=== PATIENT | female | born 1970 | race American Indian/Alaskan Native ===

== ENCOUNTER 2016-08-12 15:31 | Emergency (ER) | payer MEDICAID ==
--- NOTE | 2016-08-12 16:01 | EDM.PDOC ---
[id number]: BP ISSUES Time Seen by Provider: 08/12/16 16:06 Source: Reports: Patient, Family History Limitations: Reports: No limitations - History of Present Illness INITIAL COMMENTS - FREE TEXT/NARRATIVE: pt was sent from the clinic because her bp was quite high at the clinic. Timing/Duration: Reports: Day(s):, Getting worse, Other ( pt has not had any chest pain. ) Location, General: Reports: other ( bp is elevated. ) Associated Symptoms: Reports: other ( bp is elevated ) - Related Data Allergies/ADRs: Allergies Allergy/AdvReac Type Severity Reaction Status Date / Time No Known Allergies Allergy Verified 12/29/15 12:25 Home Meds: Home Meds Aspirin [Low Dose Aspirin EC] 81 mg PO DAILY 01/02/15 [History] Carvedilol 3.125 mg PO DAILY 01/02/15 [History] Carvedilol [Coreg] 12.5 mg PO DAILY 01/02/15 [History] Furosemide [Lasix] 40 mg PO DAILY PRN 01/02/15 [History] Losartan Potassium 25 mg PO DAILY 02/25/15 [History] Acetaminophen [Tylenol Extra Strength] 1,500 mg PO Q3H PRN 12/29/15 [History] Past Medical History Cardiovascular History: Reports: Arrhythmia, Hypertension Other Cardiovascular History: Leaking valves 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 OB/BYN History: csections x3 Musculoskeletal History: Reports: Fracture Other Musculoskeletal History: fx nose Dermatologic History: Reports: Other (see below) Other Dermatologic History: Drainage of cyst r side.06/18/2015 - Infectious Disease History Infectious Disease History: Reports: Chicken pox - Past Surgical History GI Surgical History: Reports: Cholecystectomy Female Surgical History: Reports: section Social & Family History - Tobacco Use Smoking Status *Q: Never Smoker Second Hand Smoke Exposure: No - Caffeine Use Caffeine Use: Reports: Coffee, Soda - Alcohol Use Days Per Week of Alcohol Use: 0 - Recreational Drug Use Recreational Drug Use: No ED ROS GENERAL - Review of Systems Review Of Systems: See Below Constitutional: Reports: no symptoms HEENT: Reports: No symptoms Respiratory: Reports: No Symptoms Cardiovascular: Reports: No symptoms, Other (bp is very elevated, She has been off all of hr meds. ) Endocrine: Reports: no symptoms GI/Abdominal: Reports: No symptoms : Reports: no symptoms Musculoskeletal: Reports: no symptoms Skin: Reports: no symptoms, other (pt has a draining abcess on the rt side of the abdoman that Dr Soto is following. ) Neurological: Reports: No Symptoms ED EXAM, GENERAL - Physical Exam Exam: See Below Free Text/Narrative:: Pt was at the clinic and she was found to have an elevated bp. Exam Limited By: No limitations General Appearance: alert, anxious Ears: normal TMs Nose: normal inspection Throat/Mouth: Normal inspection Head: atraumatic Neck: normal inspection Respiratory/Chest: no respiratory distress Cardiovascular: regular rate, rhythm GI/Abdominal: soft, non tender Rectal (Female) Exam: Deferred Back Exam: normal inspection Extremities: normal inspection Neurological: alert, oriented, normal cognition Course - Vital Signs Last Recorded V/S: Last Vital Signs Temp 36.8 C 08/12/16 15:55 Pulse 86 08/12/16 18:24 Resp 16 08/12/16 18:24 BP 171/101 H 08/12/16 18:24 Pulse Ox 99 08/12/16 18:24 - Orders/Labs/Meds Orders: Active Orders 24 hr Category Date Time Status EKG Documentation Completion [RC] ASDIRECTED Care 08/12/16 16:14 Active Chest 1V Frontal [CR] Stat Exams 08/12/16 16:14 Taken Saline Lock Insert [OM.PC] Routine Oth 08/12/16 16:16 Ordered EKG 12 Lead [EK] Routine Ther 08/12/16 16:14 Ordered Labs: Laboratory Tests 08/12/16 08/12/16 08/12/16 Range/Units 16:23 16:23 17:33 WBC 7.9 (4.5-11.0) K/uL RBC 5.39 (3.30-5.50) M/uL Hgb 13.7 (12.0-15.0) g/dL Hct 41.6 (36.0-48.0) % MCV 77 L (80-98) fL MCH 25 L (27-31) pg MCHC 33 (32-36) % Plt Count 292 (150-400) K/uL Neut % (Auto) 67 H (36-66) % Lymph % (Auto) 23 L (24-44) % [place] % (Auto) 7 H (2-6) % Eos % (Auto) 2 (2-4) % Baso % (Auto) 1 (0-1) % Sodium 143 (140-148) mmol/L Potassium 3.9 (3.6-5.2) mmol/L Chloride 104 (100-108) mmol/L Carbon Dioxide 29 (21-32) mmol/L Anion Gap 9.9 (5.0-14.0) mmol/L BUN 10 (7-18) mg/dL Creatinine 0.8 (0.6-1.0) mg/dL Est Cr Clr Drug Dosing 71.91 mL/min Estimated GFR (MDRD) > 60 (>60) Glucose 98 (74-106) mg/dL Calcium 8.4 L (8.5-10.1) mg/dL Total Bilirubin 0.2 (0.2-1.0) mg/dL AST 20 (15-37) U/L ALT 29 (12-78) U/L Alkaline Phosphatase 90 (46-116) U/L Lvj-F-Pujlabovrvu Pept 205 H (5-125) pg/mL Total Protein 8.0 (6.4-8.2) g/dL Albumin 3.1 L (3.4-5.0) g/dL Globulin 4.9 H (2.3-3.5) g/dL Albumin/Globulin Ratio 0.6 L (1.2-2.2) Urine Color Yellow Urine Appearance Clear Urine pH 8.0 (4.5-8.0) Ur Specific [place] 1.015 (1.008-1.030) Urine Protein Negative (NEGATIVE) mg/dL Urine Glucose (UA) Normal (NEGATIVE) mg/dL Urine Ketones Negative (NEGATIVE) mg/dL Urine Occult Blood Negative (NEGATIVE) Urine Nitrite Negative (NEGATIVE) Urine Bilirubin Negative (NEGATIVE) Urine Urobilinogen Normal (NORMAL) mg/dL Ur Leukocyte Esterase Negative (NEGATIVE) Urine RBC 0-5 (0-5) Urine WBC 0-5 (0-5) Ur Epithelial Cells Not seen Amorphous Sediment Not seen Urine Bacteria Not seen Urine Mucus Not seen Meds: Medications Discontinued Medications Generic Name Dose Route Start Last Admin Trade Name Freq PRN Reason Stop Dose Admin Carvedilol 6.25 mg 08/12/16 17:46 08/12/16 18:21 Coreg PO 08/12/16 17:47 6.25 mg ONETIME ONE Administration Labetalol HCl 20 mg 08/12/16 16:30 08/12/16 16:41 Normodyne IVPUSH 08/12/16 16:31 20 mg NOW ONE Administration Losartan Potassium 25 mg 08/12/16 16:56 08/12/16 17:04 Cozaar PO 08/12/16 16:57 25 mg ONETIME ONE Administration Sodium Chloride 10 ml 08/12/16 16:16 08/12/16 16:31 Saline Flush FLUSH 10 ml ASDIRECTED PRN Administration Keep Vein Open - Re-Assessments/Exams Free Text/Narrative Re-Assessment/Exam: 08/12/16 17:35 chest xray did not show any evidence of fluid, Her bnp is not elevated. Her ekg looks good. lab work otherwise looks normal. Departure - Departure Time of Disposition: 18:55 Disposition: Home, Self-Care 01 Condition: fair Clinical Impression: Hypertension, History of CHF (congestive heart failure) Instructions: Hypertension, Rilv-[id number], Heart Failure, [id number] Referrals: Avery Fu MD [Primary Care Provider] - Forms: ED Department Discharge Care Plan Goals: , continue aspirin. coreg 6.25 bid losartin 25 mg daily, see Dr cheney tomorrow. - My Orders Last 24 Hours: My Active Orders 08/12/16 16:14 EKG Documentation Completion [RC] ASDIRECTED Chest 1V Frontal [CR] Stat EKG 12 Lead [EK] Routine 08/12/16 16:16 Saline Lock Insert [OM.PC] Routine - Assessment/Plan Last 24 Hours: My Active Orders 08/12/16 16:14 EKG Documentation Completion [RC] ASDIRECTED Chest 1V Frontal [CR] Stat EKG 12 Lead [EK] Routine 08/12/16 16:16 Saline Lock Insert [OM.PC] Routine
[2016-08-12] MEDS ORDERED: Sodium Chloride 0.9% 10 ML Syringe FLUSH PRN (16:16)
[2016-08-12] MEDS ORDERED: Labetalol 20 MG/4 ML Syringe IVPUSH ONE (16:30)
[2016-08-12] MEDS ORDERED: Losartan 50 MG Tab PO ONE (16:56)
[2016-08-12] MEDS ORDERED: Carvedilol 6.25 MG Tab PO ONE (17:46)
[2016-08-12 18:24] VITALS: BP 171/101
--- NOTE | 2016-08-13 10:00 | CR ---
Chest 1V Frontal HISTORY: Hypertension. Comparison: 06/01/2015. FINDINGS: Cardiac size and pulmonary vessels are normal. The lungs are clear. Stable elevation right hemidiaphragm. IMPRESSION: Negative AP chest.
== END 2016-08-12 18:51 | disposition home or self-care (01) ==
LOC: JP.ED 15:31
DX: I10 Essential (primary) hypertension (principal); I50.9 Heart failure, unspecified; Z79.82 Long term (current) use of aspirin; Z79.899 Other long term (current) drug therapy; Z90.49 Acquired absence of other specified parts of digestive tract; Z98.890 Other specified postprocedural states
CPT/HCPCS: 36415; 71010; 80053; 81001; 83880; 85025; 93005; 96374; 99284; A9270; J7050

== ENCOUNTER 2016-09-03 06:29 | Day surgery (SDC) | payer MEDICAID ==
[~2016-09-03 06:29] MED LIST: Sodium Chloride 0.9% 1,000 ML IV SCH; ceFAZolin 2 GM in Premix Bag 1 BAG IV ONE; metroNIDAZOLE/Normal Saline 500 MG in Premix Bag 1 BAG IV ONE
[2016-09-03] MEDS ORDERED: Propofol 200 MG/20 ML SDV ONE (06:38)
[2016-09-03] MEDS ORDERED: fentaNYL 100 MCG/2 ML SDV ONE (06:38)
[2016-09-03] MEDS ORDERED: Midazolam 1 MG/ML 2 ML SDV ONE (06:38)
[2016-09-03] MEDS ORDERED: Lidocaine 1% with EPINEPHrine 1:100,000 50 ML MDV ONE (06:46)
[2016-09-03] MEDS ORDERED: Bupivacaine 0.5% 50 ML MDV ONE (06:46)
[2016-09-03] MEDS ORDERED: ceFAZolin 2 GM in Premix Bag 1 BAG IV ONE (07:35)
[2016-09-03] MEDS ORDERED: metroNIDAZOLE/Normal Saline 500 MG in Premix Bag 1 BAG IV ONE (07:35)
[2016-09-03] MEDS ORDERED: ceFAZolin 2 GM in Sodium Chloride 0.9% 100 ML IV ONE (07:35)
[2016-09-03] MEDS ORDERED: Bacitracin Oint 1 GM U/D Packet ONE (08:08)
[2016-09-03] MEDS ORDERED: Ketorolac 60 MG/2 ML SDV ONE (08:14)
[2016-09-03] MEDS ORDERED: Morphine 4 MG/ML Syringe IVPUSH PRN (08:44)
[2016-09-03] MEDS ORDERED: Acetaminophen/HYDROcodone 325-10 MG Tab PO PRN (08:44)
[2016-09-03 09:31] VITALS: BP 111/82
--- NOTE | 2016-09-06 07:46 | OR ---
DATE OF PROCEDURE: 09/03/2016 PROCEDURE PERFORMED: Excision of chronic sinus tract, left flank, depth of 5.1 cm. COMPLICATIONS: None. ASSIGNMENT AGENT: None. ANESTHESIA: MAC. INDICATIONS: A pleasant 46-year-old female, who has had a chronic sinus tract after having a drain placed. Risks, benefits, alternatives, and limitations were including, but not limited to infection, bleeding, and injury to abdominal structures were explained to the patient again and they wished to proceed. PROCEDURE IN DETAIL: The patient was placed in right lateral decubitus position. The skin was prepped and draped in standard fashion. A probe was used to measure the depth which was 5.5 cm. The skin and its associated tract were anesthetized with lidocaine, mixed with Marcaine. An elliptical incision was made with a #15 blade. Electrocautery was used to dissect down the tract. The incision was then large approximately 5 mm on each side to enhance visualization of the tract. The tract was then followed down to the area of the fascia. This did not penetrate the fascia in order went inside the intraabdominal component. After this, the tract was removed and sent to Pathology. The wound was thoroughly irrigated. This wound was closed in successive layers of 3-0 Vicryl to the skin. The skin was then closed with 3-0 Prolene interrupted/running sutures. An Iodoform gauze was then placed within this. The patient tolerated the procedure well. Ar Soto MD /[id number]
== END 2016-09-03 09:46 | disposition home or self-care (01) ==
LOC: JP.SDS 06:29
PROVIDERS: ATTEND Surgery
DX: K66.8 Other specified disorders of peritoneum (principal)
CPT/HCPCS: 22902; 87070; 87075; 87205; J0690; J1885; J2250; J2704; J3010; J7040; 88304

== ENCOUNTER 2019-11-04 02:00 | Emergency (ER) | payer MEDICAID ==
[2019-11-04] MEDS ORDERED: Albuterol 0.083% 2.5 MG/3 ML Neb Soln NEB ONE (02:27)
--- NOTE | 2019-11-04 02:33 | EDM.PDOC ---
ED HPI GENERAL MEDICAL PROBLEM - General Chief Complaint: Respiratory Problem Stated Complaint: SOB Time Seen by Provider: 11/04/19 02:20 Source of Information: Reports: Patient, Old Records, RN History Limitations: Reports: No Limitations - History of Present Illness INITIAL COMMENTS - FREE TEXT/NARRATIVE: 49 yo female with a pHx of CHF/valvular heart dz presents with SOB worse with exertion tonight. Denies orthopnea. Does have a slight increase in LE edema. No cough or fever. Has diuretics she can take as needed to prevent fluid overload, but didn't take any. Denies a hx of asthma and has no sneezing or nasal congestion. No chest pain. Onset: Gradual Onset Date: 11/03/19 Duration: Hour(s):, Getting Worse Location: Reports: Chest Quality: Reports: Other (no pain) Severity: Mild Improves with: Reports: Rest Worsens with: Reports: Movement Context: Reports: Other (See HPI) Associated Symptoms: Reports: Shortness of Breath. 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 (see below) (none) - Related Data Allergies Allergy/AdvReac Type Severity Reaction Status Date / Time Ewnaepn-Nbr-Vdb Reductase Allergy Cough Verified 11/04/19 02:07 Inhibitor Home Meds: Home Meds Aspirin [Low Dose Aspirin EC] 81 mg PO DAILY 01/02/15 [History] Furosemide [Lasix] 20 mg PO BID PRN 01/02/15 [History] carvediloL [Coreg] 25 mg PO BID 01/02/15 [History] Losartan Potassium 25 mg PO DAILY 02/25/15 [History] Acetaminophen [Tylenol Extra Strength] 1,500 mg PO Q3H PRN 12/29/15 [History] Spironolactone [Aldactone] 1 tab PO DAILY 11/04/19 [History] Past Medical History Cardiovascular History: Reports: Arrhythmia, Heart Failure, Hypertension Other Cardiovascular History: Leaking valves Gastrointestinal History: Reports: None Genitourinary History: Reports: Renal Calculus 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 Musculoskeletal History: Reports: Fracture Other Musculoskeletal History: fx nose Endocrine/Metabolic History: Reports: Obesity/BMI 30+ Dermatologic History: Reports: Other (See Below) Other Dermatologic History: Drainage of cyst r side.06/18/2015 - Infectious Disease History Infectious Disease History: Reports: Chicken Pox - Past Surgical History Cardiovascular Surgical History: Reports: None GI Surgical History: Reports: Cholecystectomy Female Surgical History: Reports: Section Musculoskeletal Surgical History: Reports: None Social & Family History - Tobacco Use Smoking Status *Q: Never Smoker - Caffeine Use Caffeine Use: Reports: Soda - Alcohol Use Days Per Week of Alcohol Use: 2 Number of Drinks Per Day: 4 Total Drinks Per Week: 8 - Recreational Drug Use Recreational Drug Use: No ED ROS GENERAL - Review of Systems Review Of Systems: See Below Constitutional: Reports: No Symptoms HEENT: Reports: No Symptoms Respiratory: Reports: Shortness of Breath, Wheezing. Denies: Pleuritic Chest Pain, Cough, Sputum, Hemoptysis Cardiovascular: Reports: No Symptoms Endocrine: Reports: No Symptoms GI/Abdominal: Reports: No Symptoms : Reports: No Symptoms Musculoskeletal: Reports: No Symptoms Skin: Reports: No Symptoms Neurological: Reports: No Symptoms Psychiatric: Reports: No Symptoms ED EXAM, GENERAL - Physical Exam Exam: See Below Exam Limited By: No Limitations General Appearance: Alert, WD/WN, No Apparent Distress, Obese Eye Exam: Bilateral Eye: Normal Inspection Ears: Normal External Exam, Normal Canal, Hearing Grossly Normal Ear Exam: Bilateral Ear: Auricle Normal, Canal Normal Nose: Normal Inspection, No Blood Throat/Mouth: Normal Inspection, Normal Lips, Normal Oropharynx, Normal Voice, No Airway Compromise Head: Atraumatic, Normocephalic Neck: Normal Inspection Respiratory/Chest: No Respiratory Distress, No Accessory Muscle Use, Wheezing. No: Lungs Clear, Normal Breath Sounds, Respiratory Distress, Decreased Breath Sounds, Crackles, Rales, Rhonchi, Accessory Muscle Use, Retractions Cardiovascular: Regular Rate, Rhythm, Tachycardia, Other (trace LE edema bilaterally.). No: No Edema Extremities: Normal Inspection, Normal Range of Motion, Non-Tender, Pedal Edema (trace). No: No Pedal Edema, Jens's Sign, Increased Warmth, Redness Neurological: Alert, Oriented, CN II-XII Intact, Normal Cognition, No Motor/Sensory Deficits Psychiatric: Normal Affect, Normal Mood Skin Exam: Warm, Dry, Intact, Normal Color, No Rash Course - Vital Signs Last Recorded V/S: Last Vital Signs Temp 36.4 C 11/04/19 02:10 Pulse 86 11/04/19 02:10 Resp 26 H 11/04/19 02:10 BP 156/94 H 11/04/19 02:10 Pulse Ox 97 11/04/19 02:10 - Orders/Labs/Meds Orders: Active Orders 24 hr Category Date Time Status RT Aerosol Therapy [RC] ASDIRECTED Care 11/04/19 02:28 Active Meds: Medications Discontinued Medications Generic Name Dose Route Start Last Admin Trade Name Freq PRN Reason Stop Dose Admin Albuterol 2.5 mg 11/04/19 02:27 11/04/19 02:32 Proventil Neb Soln NEB 11/04/19 02:28 2.5 mg ONETIME ONE Administration - Re-Assessments/Exams Free Text/Narrative Re-Assessment/Exam: 11/04/19 02:50 Breathing a lot better after albuterol neb Departure - Departure Time of Disposition: 02:55 Disposition: Home, Self-Care 01 Condition: Fair Clinical Impression: Bronchospasm - Discharge Information *PRESCRIPTION DRUG MONITORING PROGRAM REVIEWED*: Not Applicable *COPY OF PRESCRIPTION DRUG MONITORING REPORT IN PATIENT VINNY: Not Applicable Instructions: Bronchospasm, Adult, [id number] Referrals: Avery Fu MD [Primary Care Provider] - Forms: ED Department Discharge Additional Instructions: Take prednisone as directed. Use the albuterol inhaler as directed. Continue your usual meds. Avoid smoke exposure. Recheck with your provider later this week. Return if worse. Sepsis Event Note (ED) - Evaluation Sepsis Screening Result: No Definite Risk - Focused Exam Vital Signs: Vital Signs Temp Pulse Resp BP Pulse Ox 11/04/19 02:10 36.4 C 86 26 H 156/94 H 97 - My Orders Last 24 Hours: My Active Orders 11/04/19 02:28 RT Aerosol Therapy [RC] ASDIRECTED - Assessment/Plan Last 24 Hours: My Active Orders 11/04/19 02:28 RT Aerosol Therapy [RC] ASDIRECTED
[2019-11-04 03:17] VITALS: BP 156/94; PULSE 86
== END 2019-11-04 03:04 | disposition home or self-care (01) ==
LOC: JP.ED 02:00
DX: J98.01 Acute bronchospasm (principal); I11.0 Hypertensive heart disease with heart failure; I50.9 Heart failure, unspecified; E66.9 Obesity, unspecified; Z68.41 Body mass index [BMI] 40.0-44.9, adult; Z88.8 Allergy status to other drugs, medicaments and biological substances; Z79.82 Long term (current) use of aspirin; Z79.899 Other long term (current) drug therapy
CPT/HCPCS: 94640; 99284-25

== ENCOUNTER 2020-03-26 12:56 | Emergency (ER) | payer MEDICAID ==
[2020-03-26] MEDS ORDERED: Aspirin 81 MG Tab.Chew PO ONE ×2 (14:14→14:34)
[2020-03-26 14:16] VITALS: BP 179/90
[2020-03-26] MEDS ORDERED: Acetaminophen 500 MG Tab PO ONE (14:27)
[2020-03-26] MEDS ORDERED: Carvedilol 12.5 MG Tab PO ONE (14:34)
[2020-03-26] MEDS ORDERED: Furosemide 40 MG Tab PO ONE (14:35)
[2020-03-26] MEDS ORDERED: Spironolactone 25 MG Tab PO ONE (14:35)
[2020-03-26] MEDS ORDERED: Losartan 25 MG Tab PO SCH (14:45)
--- NOTE | 2020-03-26 14:50 | EDM.PDOC ---
ED HPI GENERAL MEDICAL PROBLEM - General Chief Complaint: Respiratory Problem Stated Complaint: FLU LIKE SYMPTOMS, ELEVATED TRIPONIN Time Seen by Provider: 03/26/20 14:50 Source of Information: Reports: Patient, Old Records, Provider, RN History Limitations: Reports: No Limitations - History of Present Illness INITIAL COMMENTS - FREE TEXT/NARRATIVE: 49 yo female was recently hospitalized in [place] for CHF was seen in the [facility] today for Covid sx's and was noted to have a mildly elevated Trop so was sent to the ER. Patient denies significant chest pain or nausea. Has a fever and body aches. No urinary sx's. Has not taken any of her meds today so far. A Covid test was done with results pending currently. Onset: Gradual Onset Date: 03/22/20 Duration: Day(s):, Getting Worse Location: Reports: Generalized Quality: Reports: Ache (diffuse) Severity: Mild Improves with: Reports: Medication Worsens with: Reports: Other (? 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 (see below) (none) - Related Data Allergies Allergy/AdvReac Type Severity Reaction Status Date / Time Gaopxrb-Pot-Qtb Reductase Allergy Cough Verified 03/26/20 14:09 Inhibitor Home Meds: Home Meds Aspirin [Low Dose Aspirin EC] 81 mg PO DAILY 01/02/15 [History] Furosemide [Lasix] 40 mg PO DAILY 01/02/15 [History] carvediloL [Coreg] 25 mg PO BID 01/02/15 [History] Losartan Potassium 25 mg PO DAILY 02/25/15 [History] Acetaminophen [Tylenol Extra Strength] 1,000 mg PO Q3H PRN 12/29/15 [History] Spironolactone [Aldactone] 1 tab PO DAILY 11/04/19 [History] Past Medical History Cardiovascular History: Reports: Arrhythmia, Heart Failure, Hypertension Other Cardiovascular History: Leaking valves Respiratory History: Reports: Pneumonia, Recurrent Gastrointestinal History: Reports: None Genitourinary History: Reports: Renal Calculus 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 Musculoskeletal History: Reports: Fracture Other Musculoskeletal History: fx nose Endocrine/Metabolic History: Reports: Obesity/BMI 30+ Dermatologic History: Reports: Other (See Below) Other Dermatologic History: Drainage of cyst r side.06/18/2015 - Infectious Disease History Infectious Disease History: Reports: Chicken Pox - Past Surgical History Cardiovascular Surgical History: Reports: None GI Surgical History: Reports: Cholecystectomy Female Surgical History: Reports: Section Musculoskeletal Surgical History: Reports: None Social & Family History - Tobacco Use Tobacco Use Status *Q: Never Tobacco User - Caffeine Use Caffeine Use: Reports: Soda - Recreational Drug Use Recreational Drug Use: No ED ROS GENERAL - Review of Systems Review Of Systems: See Below Constitutional: Reports: Fever, Chills, Malaise HEENT: Reports: No Symptoms Respiratory: Reports: No Symptoms Cardiovascular: Reports: No Symptoms Endocrine: Reports: No Symptoms GI/Abdominal: Reports: No Symptoms : Reports: No Symptoms Musculoskeletal: Reports: No Symptoms Skin: Reports: No Symptoms Neurological: Reports: No Symptoms Psychiatric: Reports: No Symptoms ED EXAM, GENERAL - Physical Exam Exam: See Below Exam Limited By: No Limitations General Appearance: Alert, WD/WN, No Apparent Distress Eye Exam: Bilateral Eye: Normal Inspection Ears: Normal External Exam, Normal Canal, Hearing Grossly Normal Ear Exam: Bilateral Ear: Auricle Normal, Canal Normal Nose: Normal Inspection, No Blood Throat/Mouth: Normal Inspection, Normal Lips, Normal Oropharynx, Normal Voice, No Airway Compromise Head: Atraumatic, Normocephalic Neck: Normal Inspection Respiratory/Chest: No Respiratory Distress, Lungs Clear, Normal Breath Sounds, No Accessory Muscle Use Cardiovascular: Regular Rate, Rhythm, No Edema, Tachycardia GI/Abdominal: Normal Bowel Sounds, Soft, Non-Tender, No Distention Back Exam: Normal Inspection. No: CVA Tenderness (R), CVA Tenderness (L) Extremities: Normal Inspection, Normal Range of Motion, Non-Tender, No Pedal Edema. No: Pedal Edema Neurological: Alert, Oriented, CN II-XII Intact, Normal Cognition, No Motor/Sensory Deficits Psychiatric: Normal Affect, Normal Mood Skin Exam: Warm, Dry, Intact, Normal Color, No Rash Course - Vital Signs Text/Narrative:: Cased discussed with a Abelardo Rai systems software specialist, he says he has no coronary dz, only a cardiomyopathy. Last Recorded V/S: Last Vital Signs Temp 38.6 C H 03/26/20 14:14 Pulse 107 H 03/26/20 14:14 Resp 26 H 03/26/20 14:14 BP 179/90 H 03/26/20 14:14 Pulse Ox 92 L 03/26/20 14:14 - Orders/Labs/Meds Orders: Active Orders 24 hr Category Date Time Status Cardiac Monitoring [RC] .As Directed Care 03/26/20 14:13 Active Losartan [Cozaar] Med 03/26/20 14:45 Active 25 mg PO DAILY Medication Orders Losartan Potassium (Cozaar) 25 mg PO DAILY JESENIA Meds: Medications Generic Name Dose Route Start Last Admin Trade Name Freq PRN Reason Stop Dose Admin Losartan Potassium 25 mg 03/26/20 14:45 Cozaar PO DAILY JESENIA Discontinued Medications Generic Name Dose Route Start Last Admin Trade Name Freq PRN Reason Stop Dose Admin Acetaminophen 1,000 mg 03/26/20 14:27 Tylenol Extra Strength PO 03/26/20 14:28 ONETIME ONE Aspirin 243 mg 03/26/20 14:14 Aspirin PO 03/26/20 14:15 ONETIME ONE Aspirin 81 mg 03/26/20 14:34 Aspirin PO 03/26/20 14:35 ONETIME ONE Carvedilol 25 mg 03/26/20 14:34 Coreg PO 03/26/20 14:35 ONETIME ONE Furosemide 40 mg 03/26/20 14:35 Lasix PO 03/26/20 14:36 ONETIME ONE Spironolactone 25 mg 03/26/20 14:35 Aldactone PO 03/26/20 14:36 ONETIME ONE Departure - Departure Time of Disposition: 15:05 Disposition: Home, Self-Care 01 Condition: Fair Clinical Impression: Viral illness - Discharge Information *PRESCRIPTION DRUG MONITORING PROGRAM REVIEWED*: No *COPY OF PRESCRIPTION DRUG MONITORING REPORT IN PATIENT VINNY: No Instructions: Viral Respiratory Infection, [id number] Referrals: Avery Fu MD [Primary Care Provider] - Forms: ED Department Discharge Additional Instructions: Continue acetaminophen up to 1000 mg every 6 hrs as needed. Drink adequate amts of fluids. Take all your medicines as directed. Consider taking Zinc 50 mg every day while ill + Vitamin D 4000 IU to boost your immunity. Isolate yourself to prevent spread. Recheck for bad shortness of breath. Sepsis Event Note (ED) - Evaluation Sepsis Screening Result: Possible Sepsis Risk - Focused Exam Vital Signs: Vital Signs Temp Pulse Resp BP Pulse Ox 03/26/20 14:14 38.6 C H 107 H 26 H 179/90 H 92 L - My Orders Last 24 Hours: My Active Orders 03/26/20 14:13 Cardiac Monitoring [RC] .As Directed 03/26/20 14:45 Losartan [Cozaar] 25 mg PO DAILY - Assessment/Plan Last 24 Hours: My Active Orders 03/26/20 14:13 Cardiac Monitoring [RC] .As Directed 03/26/20 14:45 Losartan [Cozaar] 25 mg PO DAILY
[2020-03-26 15:17] VITALS: PULSE 110
== END 2020-03-26 15:32 | disposition home or self-care (01) ==
LOC: JP.ED 12:56
DX: B34.9 Viral infection, unspecified (principal); I11.0 Hypertensive heart disease with heart failure; I50.9 Heart failure, unspecified; E66.9 Obesity, unspecified; Z68.41 Body mass index [BMI] 40.0-44.9, adult; Z88.8 Allergy status to other drugs, medicaments and biological substances; Z79.82 Long term (current) use of aspirin; Z79.899 Other long term (current) drug therapy
CPT/HCPCS: 99283; A9270

== ENCOUNTER 2021-05-09 20:29 | Emergency (ER) | payer MEDICAID ==
[2021-05-09] MEDS ORDERED: Furosemide 40 MG/4 ML VIAL IVPUSH ONE (21:39)
[2021-05-09] MEDS ORDERED: Sodium Chloride 0.9% 10 ML Syringe FLUSH PRN (21:39)
--- NOTE | 2021-05-09 22:38 | EDM.PDOC ---
ED HPI GENERAL MEDICAL PROBLEM - General Chief Complaint: Respiratory Problem Stated Complaint: SHORTNESS OF BREATH Time Seen by Provider: 05/09/21 21:05 Source of Information: Reports: Patient, Old Records History Limitations: Reports: No Limitations - History of Present Illness INITIAL COMMENTS - FREE TEXT/NARRATIVE: Lili is a 51-year-old female presenting to the ED with significant dyspnea that is significantly worsened today. The patient does have a history of congestive heart failure and has not been feeling well all day. She denies any huge salt intake like eating ham but does state that her weight is up and that she has more fluid retention in her legs. She presents with an SPO2 of 84% on room air. She has obviously having difficulty with breathing with accessory muscle use. chest tightness Pain Score (Numeric/FACES): 6 - Related Data Allergies Allergy/AdvReac Type Severity Reaction Status Date / Time Uvvbbap-ORI-CuH Reductase Allergy Cough Verified 05/09/21 21:16 Inhibitor [Pcdfcpm-Xnt-Ape Reductase Inhibitor] Home Meds: Home Meds Aspirin [Low Dose Aspirin EC] 81 mg PO DAILY 01/02/15 [History] Furosemide [Lasix] 40 mg PO DAILY 01/02/15 [History] carvediloL [Coreg] 25 mg PO BID 01/02/15 [History] Losartan Potassium 25 mg PO DAILY 02/25/15 [History] Acetaminophen [Tylenol Extra Strength] 1,000 mg PO Q3H PRN 12/29/15 [History] Spironolactone [Aldactone] 25 mg PO DAILY 11/04/19 [History] Past Medical History HEENT History: Reports: Impaired Vision Other HEENT History: glasses Cardiovascular History: Reports: Arrhythmia, Heart Failure, Hypertension Other Cardiovascular History: Leaking valves Respiratory History: Reports: Pneumonia, Recurrent Gastrointestinal History: Reports: None Genitourinary History: Reports: Renal Calculus [employer] History: Reports: Other [employer] History: csections x3 Musculoskeletal History: Reports: Fracture Other Musculoskeletal History: fx nose Endocrine/Metabolic History: Reports: Obesity/BMI 30+ Dermatologic History: Reports: Other (See Below) Other Dermatologic History: Drainage of cyst r side.06/18/2015 - Infectious Disease History Infectious Disease History: Reports: Chicken Pox - Past Surgical History GI Surgical History: Reports: Cholecystectomy Female Surgical History: Reports: Section Musculoskeletal Surgical History: Reports: None Dermatological Surgical History: Reports: None Social & Family History - Tobacco Use Tobacco Use Status *Q: Never Tobacco User - Caffeine Use Caffeine Use: Reports: Soda - Recreational Drug Use Recreational Drug Use: No ED ROS GENERAL - Review of Systems Review Of Systems: See Below Constitutional: Reports: Chills, Decreased Appetite, Weight Gain HEENT: Reports: No Symptoms Respiratory: Reports: Shortness of Breath Cardiovascular: Reports: Edema, Orthopnea, Palpitations (Tachycardia) Endocrine: Reports: No Symptoms GI/Abdominal: Reports: Nausea. Denies: Vomiting : Reports: No Symptoms Musculoskeletal: Reports: No Symptoms Skin: Reports: No Symptoms Neurological: Reports: No Symptoms Psychiatric: Reports: Anxiety Hematologic/Lymphatic: Reports: No Symptoms Immunologic: Reports: No Symptoms ED EXAM, GENERAL - Physical Exam Exam: See Below Exam Limited By: No Limitations General Appearance: Alert, Moderate Distress Eye Exam: Bilateral Eye: EOMI, PERRL Throat/Mouth: Normal Inspection, Normal Oropharynx, Normal Voice, No Airway Compromise Head: Atraumatic, Normocephalic Neck: Supple, Non-Tender, Full Range of Motion. No: Carotid Bruit, Lymphadenopathy (R), Lymphadenopathy (L) Respiratory/Chest: No Accessory Muscle Use, Decreased Breath Sounds (Diminished breath sounds in the bases), Rales (Rales about residential up bilaterally), Other (Tachypnea) Cardiovascular: Normal Peripheral Pulses, No Murmur, JVD (6 cm at 45 degrees), Tachycardia Peripheral Pulses: 2+: Radial (L), Radial (R) GI/Abdominal: Soft, Non-Tender, Abnormal Bowel Sounds (Diminished bowel sounds) Extremities: Normal Range of Motion, Pedal Edema (2+ bilateral pitting edema to the knees) Neurological: Alert, Oriented, Normal Cognition, No Motor/Sensory Deficits Psychiatric: Anxious Skin Exam: Warm, Dry #1 Interpretation EKG Date: 05/09/21 Time: 22:17 Rhythm: NSR (Sinus tachycardia) Rate (Beats/Min): 103 [place]: Normal P-Wave: Present QRS: Normal (Poor R wave progression in the precordial leads. LVH by voltage criteria) ST-T: Normal QT: Normal Comparison: No Change (EKG remains unchanged when compared to previous EKG done on 08/12/2016.) Course - Vital Signs Last Recorded V/S: Last Vital Signs Temp 36.9 C 12/26/21 00:31 Pulse 96 05/10/21 00:31 Resp 26 H 05/10/21 00:31 BP 132/73 05/10/21 00:31 Pulse Ox 95 05/10/21 00:31 - Orders/Labs/Meds Orders: Active Orders 24 hr Category Date Time Status Insert Urinary Catheter [OM.PC] Q24H Care 05/09/21 21:45 Ordered Urinary Catheter Assessment [RC] ASDIRECTED Care 05/09/21 21:40 Active Chest 1V Frontal [CR] Stat Exams 05/09/21 21:39 Taken Sodium Chloride 0.9% [Saline Flush] Med 05/09/21 21:39 Active 10 ml FLUSH ASDIRECTED PRN Isolation [COMM] Stat Oth 05/09/21 21:41 Ordered Saline Lock Insert [OM.PC] Routine Oth 05/09/21 21:39 Ordered EKG 12 Lead [EK] Routine Ther 05/09/21 21:39 Ordered Medication Orders Sodium Chloride (Sodium Chloride 0.9% 10 Ml Syringe) 10 ml FLUSH ASDIRECTED PRN PRN Reason: Keep Vein Open Last Admin: 05/09/21 23:01 Dose: 10 ml Documented by: GERALDINE Labs: Laboratory Tests 05/09/21 05/09/21 05/09/21 Range/Units 21:51 21:51 21:51 WBC 10.9 (4.5-11.0) K/uL RBC 4.92 (3.30-5.50) M/uL Hgb 13.5 (12.0-15.0) g/dL Hct 41.9 (36.0-48.0) % MCV 85 (80-98) fL MCH 27 (27-31) pg MCHC 32 (32-36) % Plt Count 249 (150-400) K/uL Neut % (Auto) 82.2 H (36-66) % Lymph % (Auto) 9.2 L (24-44) % [place] % (Auto) 7.5 H (2-6) % Eos % (Auto) 0.8 L (2-4) % Baso % (Auto) 0.3 (0-1) % Puncture Site ABG pH (7.350-7.450) ABG pCO2 (35.0-42.0) mmHg ABG pO2 (75.0-100.0) mmHg ABG HCO3 (22.0-26.0) mmol/L ABG Total CO2 (21.0-25.0) mmol/L ABG O2 Saturation (95.0-98.0) % ABG O2 Content (15.0-23.0) %vol ABG Base Excess mm/L ABG Hemoglobin (12.0-16.0) g/dL ABG Oxyhemoglobin % ABG Carboxyhemoglobin (0.0-1.6) % ABG Methemoglobin % O2 Delivery Device Oxygen Flow Rate L Sodium 139 L (140-148) mmol/L Potassium 4.0 (3.6-5.2) mmol/L Chloride 103 (100-108) mmol/L Carbon Dioxide 28 (21-32) mmol/L Anion Gap 12.0 (5.0-14.0) mmol/L BUN 9 (7-18) mg/dL Creatinine 0.9 (0.6-1.0) mg/dL Est Cr Clr Drug Dosing 60.49 mL/min Estimated GFR (MDRD) > 60 (>60) Glucose 135 H (74-106) mg/dL Lactic Acid 1.0 (0.4-2.0) mmol/L Calcium 8.4 L (8.5-10.1) mg/dL Total Bilirubin 0.5 D (0.2-1.0) mg/dL AST 30 (15-37) U/L ALT 39 (12-78) U/L Alkaline Phosphatase 74 (46-116) U/L Troponin I High Sens 298.4 H* (<=60.3) pg/mL NT-Pro-B Natriuret Pep 1158 H (5-125) pg/mL Total Protein 7.4 (6.4-8.2) g/dL Albumin 3.1 L (3.4-5.0) g/dL Globulin 4.3 H (2.3-3.5) g/dL Albumin/Globulin Ratio 0.7 L (1.2-2.2) Urine Color (YELLOW) Urine Appearance (CLEAR) Urine pH (5.0-8.0) Ur Specific [place] (1.008-1.030) Urine Protein (NEGATIVE) mg/dL Urine Glucose (UA) (NEGATIVE) mg/dL Urine Ketones (NEGATIVE) mg/dL Urine Occult Blood (NEGATIVE) Urine Nitrite (NEGATIVE) Urine Bilirubin (NEGATIVE) Urine Urobilinogen (0.2-1.0) EU/dL Ur Leukocyte Esterase (NEGATIVE) Urine RBC (0-5) Urine WBC (0-5) Ur Epithelial Cells Amorphous Sediment Urine Bacteria Urine Mucus Influenza Type A RNA (NEGATIVE) RSV RNA (INAAT) (NEGATIVE) Influenza Type B RNA (NEGATIVE) SARS-CoV-2 RNA ([place]) (NEGATIVE) 05/09/21 05/09/21 05/09/21 Range/Units 22:16 22:55 23:00 WBC (4.5-11.0) K/uL RBC (3.30-5.50) M/uL Hgb (12.0-15.0) g/dL Hct (36.0-48.0) % MCV (80-98) fL MCH (27-31) pg MCHC (32-36) % Plt Count (150-400) K/uL Neut % (Auto) (36-66) % Lymph % (Auto) (24-44) % [place] % (Auto) (2-6) % Eos % (Auto) (2-4) % Baso % (Auto) (0-1) % Puncture Site R radial ABG pH 7.411 (7.350-7.450) ABG pCO2 40.6 (35.0-42.0) mmHg ABG pO2 71.4 L (75.0-100.0) mmHg ABG HCO3 25.3 (22.0-26.0) mmol/L ABG Total CO2 22.4 (21.0-25.0) mmol/L ABG O2 Saturation 94.3 L (95.0-98.0) % ABG O2 Content 17.4 (15.0-23.0) %vol ABG Base Excess 1.1 mm/L ABG Hemoglobin 13.4 (12.0-16.0) g/dL ABG Oxyhemoglobin 92.4 % ABG Carboxyhemoglobin 1.2 (0.0-1.6) % ABG Methemoglobin 0.8 % O2 Delivery Device Nasal cannula Oxygen Flow Rate 2.0 L Sodium (140-148) mmol/L Potassium (3.6-5.2) mmol/L Chloride (100-108) mmol/L Carbon Dioxide (21-32) mmol/L Anion Gap (5.0-14.0) mmol/L BUN (7-18) mg/dL Creatinine (0.6-1.0) mg/dL Est Cr Clr Drug Dosing mL/min Estimated GFR (MDRD) (>60) Glucose (74-106) mg/dL Lactic Acid (0.4-2.0) mmol/L Calcium (8.5-10.1) mg/dL Total Bilirubin (0.2-1.0) mg/dL AST (15-37) U/L ALT (12-78) U/L Alkaline Phosphatase (46-116) U/L Troponin I High Sens (<=60.3) pg/mL NT-Pro-B Natriuret Pep (5-125) pg/mL Total Protein (6.4-8.2) g/dL Albumin (3.4-5.0) g/dL Globulin (2.3-3.5) g/dL Albumin/Globulin Ratio (1.2-2.2) Urine Color Yellow (YELLOW) Urine Appearance Clear (CLEAR) Urine pH 5.5 (5.0-8.0) Ur Specific [place] 1.025 (1.008-1.030) Urine Protein 30 H (NEGATIVE) mg/dL Urine Glucose (UA) Negative (NEGATIVE) mg/dL Urine Ketones Negative (NEGATIVE) mg/dL Urine Occult Blood Trace-intact H (NEGATIVE) Urine Nitrite Negative (NEGATIVE) Urine Bilirubin Negative (NEGATIVE) Urine Urobilinogen 0.2 (0.2-1.0) EU/dL Ur Leukocyte Esterase Negative (NEGATIVE) Urine RBC 0-5 (0-5) Urine WBC 0-5 (0-5) Ur Epithelial Cells Not seen Amorphous Sediment Not seen Urine Bacteria Rare Urine Mucus Not seen Influenza Type A RNA Negative (NEGATIVE) RSV RNA (INAAT) Negative (NEGATIVE) Influenza Type B RNA Negative (NEGATIVE) SARS-CoV-2 RNA ([place]) Negative (NEGATIVE) 05/10/21 Range/Units 00:40 WBC (4.5-11.0) K/uL RBC (3.30-5.50) M/uL Hgb (12.0-15.0) g/dL Hct (36.0-48.0) % MCV (80-98) fL MCH (27-31) pg MCHC (32-36) % Plt Count (150-400) K/uL Neut % (Auto) (36-66) % Lymph % (Auto) (24-44) % [place] % (Auto) (2-6) % Eos % (Auto) (2-4) % Baso % (Auto) (0-1) % Puncture Site ABG pH (7.350-7.450) ABG pCO2 (35.0-42.0) mmHg ABG pO2 (75.0-100.0) mmHg ABG HCO3 (22.0-26.0) mmol/L ABG Total CO2 (21.0-25.0) mmol/L ABG O2 Saturation (95.0-98.0) % ABG O2 Content (15.0-23.0) %vol ABG Base Excess mm/L ABG Hemoglobin (12.0-16.0) g/dL ABG Oxyhemoglobin % ABG Carboxyhemoglobin (0.0-1.6) % ABG Methemoglobin % O2 Delivery Device Oxygen Flow Rate L Sodium (140-148) mmol/L Potassium (3.6-5.2) mmol/L Chloride (100-108) mmol/L Carbon Dioxide (21-32) mmol/L Anion Gap (5.0-14.0) mmol/L BUN (7-18) mg/dL Creatinine (0.6-1.0) mg/dL Est Cr Clr Drug Dosing mL/min Estimated GFR (MDRD) (>60) Glucose (74-106) mg/dL Lactic Acid (0.4-2.0) mmol/L Calcium (8.5-10.1) mg/dL Total Bilirubin (0.2-1.0) mg/dL AST (15-37) U/L ALT (12-78) U/L Alkaline Phosphatase (46-116) U/L Troponin I High Sens 301.8 H* (<=60.3) pg/mL NT-Pro-B Natriuret Pep (5-125) pg/mL Total Protein (6.4-8.2) g/dL Albumin (3.4-5.0) g/dL Globulin (2.3-3.5) g/dL Albumin/Globulin Ratio (1.2-2.2) Urine Color (YELLOW) Urine Appearance (CLEAR) Urine pH (5.0-8.0) Ur Specific [place] (1.008-1.030) Urine Protein (NEGATIVE) mg/dL Urine Glucose (UA) (NEGATIVE) mg/dL Urine Ketones (NEGATIVE) mg/dL Urine Occult Blood (NEGATIVE) Urine Nitrite (NEGATIVE) Urine Bilirubin (NEGATIVE) Urine Urobilinogen (0.2-1.0) EU/dL Ur Leukocyte Esterase (NEGATIVE) Urine RBC (0-5) Urine WBC (0-5) Ur Epithelial Cells Amorphous Sediment Urine Bacteria Urine Mucus Influenza Type A RNA (NEGATIVE) RSV RNA (INAAT) (NEGATIVE) Influenza Type B RNA (NEGATIVE) SARS-CoV-2 RNA ([place]) (NEGATIVE) Meds: Medications Generic Name Dose Route Start Last Admin Trade Name Freq PRN Reason Stop Dose Admin Sodium Chloride 10 ml 05/09/21 21:39 05/09/21 23:01 Sodium Chloride 0.9% 10 Ml Syringe FLUSH 10 ml ASDIRECTED PRN Administration Keep Vein Open Discontinued Medications Generic Name Dose Route Start Last Admin Trade Name Freq PRN Reason Stop Dose Admin Furosemide 80 mg 05/09/21 21:39 05/09/21 23:01 Furosemide 40 Mg/4 Ml Vial IVPUSH 05/09/21 21:40 80 mg ONETIME ONE Administration - Re-Assessments/Exams Free Text/Narrative Re-Assessment/Exam: 05/09/21 22:45 catheter was placed for close monitoring of I's and O's, an IV was established and patient was given Lasix 80 mg IV push. Her EKG was reviewed and does not show anything significant for acute injury or ischemia. There is no evidence for previous infarct. She does have LVH by voltage criteria and I suspect that she has diastolic dysfunction causing her CHF. I did review her chest x-ray showing very significant cardiomegaly and moderate pulmonary edema with some cephalization of the vessels. I did review her labs showing a leukocytosis of 10.9 with a normal differential. Her hemoglobin is 13.5 and a platelet count of 249,000. Her comprehensive metabolic panel shows a sodium of 139, potassium 4.0, chloride of 103, bicarbonate of 28, BUN of 9 with a creatinine of 0.9 and glucose of 135. Her calcium is 8.4. The remainder of her comprehensive is unremarkable including AST, ALT, and alkaline phosphatase. Her highly sensitive troponin is 298.4 and her pro N-terminal BNP is elevated at 1158. This is all consistent with diastolic dysfunction causing congestive heart failure in the presence of an elevated JVP of 6 cm at 45 degrees. She will likely need to be hospitalized especially to rule out a non-STEMI but I lucas spect that her elevated troponin is due to her congestive heart failure. We will get a serial troponin in 3 hours. 05/10/21 00:30 I discussed the case with Dr. Tang, hospitalist at [facility] as we reviewed the patient's presentation, examination, imaging, and labs. We have come to the agreement to check a delta troponin as this will better define where the patient is best served at [facility]. I will call him back once I have the second troponin. In the meantime, the patient has had good urine output from the Lasix 80 mg IV putting out over 1800 cc of urine. Urinalysis was obtained and is negative. In discussion, Dr. Tang reports that the patient's last echocardiogram shows that she has an ejection fraction of the left ventricle of only 25%. 05/10/21 01:16 delta troponin is 301.8 which essentially is unchanged from previous. I discussed this with the nurse at [facility] who passed it on to Dr. Tang. They have accepted the patient for transfer. We will arrange for EMS to transport the patient. Departure - Departure Time of Disposition: 01:35 Disposition: DC/Tfer to [facility] 02 Clinical Impression: Left ventricular hypertrophy by electrocardiogram Congestive heart failure (CHF) Qualifiers: Heart failure type: diastolic Heart failure chronicity: acute on chronic Qualified Code(s): I50.33 - Acute on chronic diastolic (congestive) heart failure Pulmonary edema Qualifiers: Chronicity: acute Qualified Code(s): J81.0 - Acute pulmonary edema Respiratory failure with hypoxia Qualifiers: Chronicity: acute Qualified Code(s): J96.01 - Acute respiratory failure with hypoxia - Discharge Information Referrals: PCP,Unknown [Primary Care Provider] - Forms: ED Department Discharge Sepsis Event Note (ED) - Evaluation Sepsis Screening Result: Possible Sepsis Risk - Focused Exam Vital Signs: Vital Signs Temp Pulse Resp BP Pulse Ox 05/10/21 00:31 36.9 C 96 26 H 132/73 95 05/09/21 22:58 37.4 C 101 H 28 H 143/89 H 94 L 05/09/21 21:30 38.1 C 190 H 37 H 152/98 H 86 L 05/09/21 21:14 38.1 C 190 H 37 H 152/98 H 86 L - Problem List & Annotations (1) Congestive heart failure (CHF) SNOMED Code(s): 03141819 Code(s): I50.9 - HEART FAILURE, UNSPECIFIED Status: Acute Priority: High Current Visit: Yes Qualifiers: Heart failure type: combined systolic and diastolic Heart failure chronicity: acute on chronic Qualified Code(s): I50.43 - Acute on chronic combined systolic (congestive) and diastolic (congestive) heart failure (2) Left ventricular hypertrophy by electrocardiogram SNOMED Code(s): 80381451 Code(s): I51.7 - CARDIOMEGALY Status: Acute Priority: High Current Visit: Yes (3) Pulmonary edema SNOMED Code(s): 23843860 Code(s): J81.1 - CHRONIC PULMONARY EDEMA Status: Acute Priority: High Current Visit: Yes Qualifiers: Chronicity: acute Qualified Code(s): J81.0 - Acute pulmonary edema (4) Respiratory failure with hypoxia SNOMED Code(s): 59067117501750061 Code(s): J96.91 - RESPIRATORY FAILURE, UNSPECIFIED WITH HYPOXIA Status: Acute Priority: High Current Visit: Yes Qualifiers: Chronicity: acute Qualified Code(s): J96.01 - Acute respiratory failure with hypoxia - Problem List Review Problem List Initiated/Reviewed/Updated: Yes - My Orders Last 24 Hours: My Active Orders 05/09/21 21:39 Chest 1V Frontal [CR] Stat Sodium Chloride 0.9% [Saline Flush] 10 ml FLUSH ASDIRECTED PRN Saline Lock Insert [OM.PC] Routine EKG 12 Lead [EK] Routine 05/09/21 21:40 Urinary Catheter Assessment [RC] ASDIRECTED 05/09/21 21:41 Isolation [COMM] Stat 05/09/21 21:45 Insert Urinary Catheter [OM.PC] Q24H - Assessment/Plan Last 24 Hours: My Active Orders 05/09/21 21:39 Chest 1V Frontal [CR] Stat Sodium Chloride 0.9% [Saline Flush] 10 ml FLUSH ASDIRECTED PRN Saline Lock Insert [OM.PC] Routine EKG 12 Lead [EK] Routine 05/09/21 21:40 Urinary Catheter Assessment [RC] ASDIRECTED 05/09/21 21:41 Isolation [COMM] Stat 05/09/21 21:45 Insert Urinary Catheter [OM.PC] Q24H
[2021-05-09 23:21] LABS: CORONAVIRUS COVID-19 NAA NEGATIVE (NEGATIVE)
[2021-05-10 01:56] VITALS: BP 113/58; PULSE 94
--- NOTE | 2021-05-11 13:02 | CR ---
CHEST: Portable chest 05/09/2021 at 10:21 PM CLINICAL HISTORY:Dyspnea, CHF COMPARISON:March 2020 FINDINGS: Heart is enlarged. Pulmonary vascularity is cephalad an ill-defined. There is prominence of the perihilar lung markings. There is no effusion. There is elevation right hemidiaphragm which is chronic. Impression: Cardiomegaly with increased vascularity and increased lung markings suggest CHF
== END 2021-05-10 03:11 ==
LOC: JP.ED 20:29
DX: I11.0 Hypertensive heart disease with heart failure (principal); I50.33 Acute on chronic diastolic (congestive) heart failure; J96.01 Acute respiratory failure with hypoxia; R00.0 Tachycardia, unspecified; E66.9 Obesity, unspecified; Z68.42 Body mass index [BMI] 45.0-49.9, adult; Z88.8 Allergy status to other drugs, medicaments and biological substances; Z79.82 Long term (current) use of aspirin; Z79.899 Other long term (current) drug therapy; Z20.822 Contact with and (suspected) exposure to COVID-19
CPT/HCPCS: 0241U; 36415; 36600; 71045; 80053; 81001; 82803; 83605; 83880; 84484; 85025; 93005; 96374; 99285; J1940

== ENCOUNTER 2023-06-09 21:10 | Emergency (ER) | payer MEDICAID ==
[2023-06-09 21:17] VITALS: BP 139/77; PULSE 107
[2023-06-09 22:25] LABS: BASOPHILS ABSOLUTE AUTO 0.05 K/uL (0.00-0.10); BASOPHILS PERCENT AUTO 0.4 % (0.1-1.3); EOSINOPHILS PERCENT AUTO 0.1 % (0.0-5.4); HEMATOCRIT 47.5 % (34.3-46.0); HEMOGLOBIN 15.7 g/dL (11.2-15.5); IMMATURE GRAN ABSOLUTE AUTO 0.09 K/uL (0.00-0.23); IMMATURE GRAN PERCENT AUTO 0.8 % (0.0-0.7); LYMPHOCYTES ABSOLUTE AUTO 0.77 K/uL (0.8-3.3); LYMPHOCYTES PERCENT AUTO 6.7 % (11.4-47.7); MEAN CORPUSCULAR HEMOGLOBIN 28.1 pg (31.6-35.5); MEAN CORPUSCULAR HGB CONC 33.1 g/dL (31.6-35.5); MONOCYTES ABSOLUTE AUTO 0.71 K/uL (0.20-0.90); MONOCYTES PERCENT AUTO 6.2 % (3.3-12.6); NEUTROPHILS ABSOLUTE AUTO 9.91 K/uL (1.0-7.6); NEUTROPHILS PERCENT AUTO 85.8 % (40.0-78.1); PLATELET COUNT,PLT 208 K/uL (130-375); RED BLOOD CELL COUNT 5.59 M/uL (3.77-5.24); WHITE BLOOD CELL COUNT,WBC 11.5 K/uL (3.2-11.0)
[2023-06-09 22:27] LABS: EOSINOPHILS ABSOLUTE AUTO 0.01 K/uL (0.00-0.40)
[2023-06-09 22:31] LABS: CORONAVIRUS COVID-19 NAA NEGATIVE (NEGATIVE); INFLUENZA A NAA NEGATIVE (NEGATIVE); INFLUENZA B NAA NEGATIVE (NEGATIVE); RESPIRATORY SYNCYTIAL VIR NAA NEGATIVE (NEGATIVE)
[2023-06-09 22:51] LABS: A/G RATIO 0.6 (1.2-2.2); ALANINE AMINOTRANSFERASE,ALT 28 U/L (12-78); ALBUMIN 2.7 g/dL (3.4-5.0); ALKALINE PHOSPHATASE 85 U/L (46-116); ASPARTATE AMNIOTRANSFERASE,AST 30 U/L (15-37); BILIRUBIN TOTAL 0.8 mg/dL (0.2-1.0); BLOOD UREA NITROGEN,BUN 12 mg/dL (7-18); CARBON DIOXIDE,CO2 26 mmol/L (21-32); CHLORIDE,CL 98 mmol/L (100-108); CREATININE 1.1 mg/dL (0.6-1.0); EST CRCL DRUG DOSING (CG) 48.36 mL/min; ESTIMATED GFR 60 mL/min (>60); GLUCOSE RANDOM 153 mg/dL (74-106); POTASSIUM,K 3.1 mmol/L (3.6-5.2); PRO B-TYPE NATRIUR PEPT,BNPPRO 436 pg/mL (5-125); PROTEIN TOTAL,TP 7.5 g/dL (6.4-8.2); SODIUM,NA 136 mmol/L (140-148)
[2023-06-09 22:56] LABS: ANION GAP 15.1 mmol/L (5.0-14.0)
[2023-06-10] MEDS ORDERED: Sodium Chloride 0.9% 1,000 ML IV ONE (00:49)
== END 2023-06-09 23:34 | disposition home or self-care (01) ==
LOC: JP.ED 21:10
DX: J18.9 Pneumonia, unspecified organism (principal); I11.0 Hypertensive heart disease with heart failure; I50.9 Heart failure, unspecified; E66.9 Obesity, unspecified; Z68.41 Body mass index [BMI] 40.0-44.9, adult; Z90.49 Acquired absence of other specified parts of digestive tract; Z88.8 Allergy status to other drugs, medicaments and biological substances; Z79.82 Long term (current) use of aspirin; Z79.899 Other long term (current) drug therapy
CPT/HCPCS: 0241U; 36415; 71046; 80053; 83880; 84145; 85025; 93005; 93010; 99284; 99285

== ENCOUNTER 2023-07-09 12:03 | Emergency (ER) | payer MEDICAID ==
[2023-07-09 12:26] LABS: BASOPHILS ABSOLUTE AUTO 0.05 K/uL (0.00-0.10); BASOPHILS PERCENT AUTO 0.7 % (0.1-1.3); EOSINOPHILS ABSOLUTE AUTO 0.43 K/uL (0.00-0.40); EOSINOPHILS PERCENT AUTO 6.1 % (0.0-5.4); HEMATOCRIT 45.5 % (34.3-46.0); HEMOGLOBIN 15.1 g/dL (11.2-15.5); IMMATURE GRAN ABSOLUTE AUTO 0.06 K/uL (0.00-0.23); IMMATURE GRAN PERCENT AUTO 0.8 % (0.0-0.7); LYMPHOCYTES ABSOLUTE AUTO 2.25 K/uL (0.8-3.3); LYMPHOCYTES PERCENT AUTO 31.9 % (11.4-47.7); MEAN CORPUSCULAR HEMOGLOBIN 28.1 pg (31.6-35.5); MEAN CORPUSCULAR HGB CONC 33.2 g/dL (31.6-35.5); MEAN CORPUSCULAR VOLUME 84.7 fL (81.4-99.0); MONOCYTES ABSOLUTE AUTO 0.47 K/uL (0.20-0.90); MONOCYTES PERCENT AUTO 6.7 % (3.3-12.6); NEUTROPHILS PERCENT AUTO 53.8 % (40.0-78.1); PLATELET COUNT,PLT 238 K/uL (130-375); RED BLOOD CELL COUNT 5.37 M/uL (3.77-5.24); WHITE BLOOD CELL COUNT,WBC 7.1 K/uL (3.2-11.0)
[2023-07-09] MEDS: Sodium Chloride 0.9% 10 ML Syringe FLUSH PRN (12:40)
[2023-07-09] MEDS: Aspirin 81 MG Tab.Chew PO ONE (12:41)
[2023-07-09] MEDS: Nitroglycerin 0.4 MG Tab.SL SL PRN (12:41)
[2023-07-09 12:53] LABS: A/G RATIO 0.6 (1.2-2.2); ALANINE AMINOTRANSFERASE,ALT 27 U/L (12-78); ALKALINE PHOSPHATASE 86 U/L (46-116); ASPARTATE AMNIOTRANSFERASE,AST 25 U/L (15-37); BILIRUBIN TOTAL 0.3 mg/dL (0.2-1.0); BLOOD UREA NITROGEN,BUN 10 mg/dL (7-18); CALCIUM 8.9 mg/dL (8.5-10.1); CARBON DIOXIDE,CO2 28 mmol/L (21-32); CHLORIDE,CL 104 mmol/L (100-108); CREATININE 0.9 mg/dL (0.6-1.0); EST CRCL DRUG DOSING (CG) 59.11 mL/min; ESTIMATED GFR 76 mL/min (>60); GLUCOSE RANDOM 112 mg/dL (74-106); POTASSIUM,K 3.4 mmol/L (3.6-5.2); PRO B-TYPE NATRIUR PEPT,BNPPRO 173 pg/mL (5-125); PROTEIN TOTAL,TP 8.1 g/dL (6.4-8.2); SODIUM,NA 142 mmol/L (140-148)
[2023-07-09 12:54] LABS: ANION GAP 13.4 mmol/L (5.0-14.0)
[2023-07-09 12:55] LABS: TROPONIN I HIGH SENSITIVITY 178.1 pg/mL (<=60.3)
[2023-07-09] MEDS: Morphine 4 MG/ML Syringe IVPUSH PRN (13:03)
[2023-07-09 13:15] LABS: PROTHROMBIN TIME 9.9 sec (9.2-10.6); PTT,PARTIAL THROMBOPLSTIN TIME 25.3 sec (21.8-27.3)
[2023-07-09] MEDS: Heparin Sodium 5,000 Units/ML Vial IVPUSH ONE (13:26)
[2023-07-09] MEDS: Heparin Sodium/D5W 25,000 UNITS/500 ML BAG IV SCH (13:36)
[2023-07-09 14:43] VITALS: BP 138/84; PULSE 80
== END 2023-07-09 15:15 ==
LOC: JP.ED 12:03
DX: I21.4 Non-ST elevation (NSTEMI) myocardial infarction (principal); I11.0 Hypertensive heart disease with heart failure; I50.9 Heart failure, unspecified; E66.9 Obesity, unspecified; Z68.42 Body mass index [BMI] 45.0-49.9, adult; Z88.8 Allergy status to other drugs, medicaments and biological substances; Z90.49 Acquired absence of other specified parts of digestive tract; Z79.82 Long term (current) use of aspirin; Z79.899 Other long term (current) drug therapy
CPT/HCPCS: 36415; 71045; 80053; 83735; 83880; 84484; 85025; 85610; 85730; 93005; 93010; 96365; 96366; 96375; 99285; A9270; J1644; J2270; J3490

== ENCOUNTER 2024-01-27 01:25 | Emergency (ER) | payer MEDICAID ==
[2024-01-27 01:44] LABS: BASOPHILS ABSOLUTE AUTO 0.05 K/uL (0.00-0.10); BASOPHILS PERCENT AUTO 0.7 % (0.1-1.3); EOSINOPHILS ABSOLUTE AUTO 0.35 K/uL (0.00-0.40); EOSINOPHILS PERCENT AUTO 5.2 % (0.0-5.4); HEMATOCRIT 41.5 % (34.3-46.0); HEMOGLOBIN 13.9 g/dL (11.2-15.5); IMMATURE GRAN ABSOLUTE AUTO 0.06 K/uL (0.00-0.23); IMMATURE GRAN PERCENT AUTO 0.9 % (0.0-0.7); LYMPHOCYTES ABSOLUTE AUTO 1.89 K/uL (0.8-3.3); LYMPHOCYTES PERCENT AUTO 27.8 % (11.4-47.7); MEAN CORPUSCULAR HEMOGLOBIN 28.6 pg (31.6-35.5); MEAN CORPUSCULAR HGB CONC 33.5 g/dL (31.6-35.5); MEAN CORPUSCULAR VOLUME 85.4 fL (81.4-99.0); MONOCYTES ABSOLUTE AUTO 0.65 K/uL (0.20-0.90); MONOCYTES PERCENT AUTO 9.6 % (3.3-12.6); NEUTROPHILS ABSOLUTE AUTO 3.79 K/uL (1.0-7.6); NEUTROPHILS PERCENT AUTO 55.8 % (40.0-78.1); PLATELET COUNT,PLT 192 K/uL (130-375); RED BLOOD CELL COUNT 4.86 M/uL (3.77-5.24); WHITE BLOOD CELL COUNT,WBC 6.8 K/uL (3.2-11.0)
[2024-01-27 02:17] LABS: A/G RATIO 0.7 (1.2-2.2); ALANINE AMINOTRANSFERASE,ALT 27 U/L (12-78); ALBUMIN 2.8 g/dL (3.4-5.0); ALKALINE PHOSPHATASE 86 U/L (46-116); ANION GAP 9.3 mmol/L (5.0-14.0); ASPARTATE AMNIOTRANSFERASE,AST 22 U/L (15-37); BILIRUBIN TOTAL 0.3 mg/dL (0.2-1.0); BLOOD UREA NITROGEN,BUN 15 mg/dL (7-18); CALCIUM 8.8 mg/dL (8.5-10.1); CARBON DIOXIDE,CO2 27 mmol/L (21-32); CHLORIDE,CL 106 mmol/L (100-108); CREATININE 0.8 mg/dL (0.6-1.0); ESTIMATED GFR 88 mL/min (>60); GLUCOSE RANDOM 134 mg/dL (74-106); POTASSIUM,K 3.8 mmol/L (3.6-5.2); SODIUM,NA 142 mmol/L (140-148)
[2024-01-27 02:19] LABS: TROPONIN I HIGH SENSITIVITY 167.2 pg/mL (<=60.3)
[2024-01-27 06:18] VITALS: BP 147/72; PULSE 79
== END 2024-01-27 06:42 | disposition home or self-care (01) ==
LOC: JP.ED 01:25
DX: I42.8 Other cardiomyopathies (principal); R79.89 Other specified abnormal findings of blood chemistry; R06.02 Shortness of breath; E66.9 Obesity, unspecified; Z88.8 Allergy status to other drugs, medicaments and biological substances; Z79.82 Long term (current) use of aspirin; Z79.899 Other long term (current) drug therapy; Z90.49 Acquired absence of other specified parts of digestive tract; Z68.28 Body mass index [BMI] 28.0-28.9, adult
CPT/HCPCS: 36415; 71045; 71045-26; 80053; 83880; 84484; 85025; 93005; 93010; 99284; 99285